=== PATIENT | female | born 1970 | race Caucasian/White ===

== ENCOUNTER 2018-07-30 17:55 | Emergency (ER) | payer BC ==
[2018-07-30 18:05] VITALS: BP 146/89
[2018-07-30] MEDS ORDERED: Albuterol 0.083% 2.5 MG/3 ML Neb Soln NEB ONE (19:00)
--- NOTE | 2018-07-30 19:06 | EDM.PDOC ---
ED HPI GENERAL MEDICAL PROBLEM - General Chief Complaint: Respiratory Problem Stated Complaint: SOB Time Seen by Provider: 07/30/18 18:30 Source of Information: Reports: Patient History Limitations: Reports: No Limitations - History of Present Illness INITIAL COMMENTS - FREE TEXT/NARRATIVE: Patient is a 47-year-old female who presents ED complaining of shortness of breath with exertion and difficulty getting air in. She also has some discomfort to the right upper sternal border worse with palpation. She states symptoms have been going on for the past 3 weeks. She was diagnosed with a sinus infection and received albuterol treatment at that time. She took doxycycline and completed the course. Over the past weekend she's felt that she cannot catch her breath. She's been taking a rescue inhaler with some relief. Today while watching football she felt like she couldn't get all her air in. There's been no documented fever. Sinus congestion and postnasal drip are minimal. She has no cough. She's been eating and drinking okay. There is no increase in weight, swelling to her lower extremities, pain to lower extremities , sore throat, fever, or any additional complaint. Chest Pain Score (Numeric/FACES): 4 - Related Data Allergies Allergy/AdvReac Type Severity Reaction Status Date / Time clindamycin Allergy Hives Verified 07/30/18 18:00 Penicillins Allergy Hives Verified 07/30/18 18:00 Sulfa (Sulfonamide Allergy Hives Verified 07/30/18 18:00 Antibiotics) Home Meds: Home Meds Fluticasone Propionate [Flonase] 2 spray IN DAILY 10/02/15 [History] Zolpidem Tartrate [Ambien] 2.5 mg PO BEDTIME 10/02/15 [History] buPROPion [Wellbutrin XL] 300 mg PO DAILY 10/02/15 [History] Albuterol [Proventil HFA] 1 puff INH QID PRN 07/30/18 [History] FLUoxetine [PROzac] 40 mg PO DAILY 07/30/18 [History] guaiFENesin [Mucinex] 1,200 mg PO ONCALL PRN 07/30/18 [History] Past Medical History - Past Health History Medical/Surgical History: Denies Medical/Surgical History Respiratory History: Reports: Asthma, Sleep Apnea Musculoskeletal History: Reports: Fracture, Other (See Below) Other Musculoskeletal History: herniated disc Psychiatric History: Reports: Depression Hematologic History: Reports: Anemia - Past Surgical History HEENT Surgical History: Reports: Tonsillectomy, Other (See Below) Other HEENT Surgeries/Procedures: Sinus cyst removed Social & Family History - Tobacco Use Smoking Status *Q: Never Smoker - Alcohol Use Days Per Week of Alcohol Use: 3 Number of Drinks Per Day: 2 Total Drinks Per Week: 6 - Recreational Drug Use Recreational Drug Use: No ED ROS GENERAL - Review of Systems Review Of Systems: See Below Constitutional: Denies: Fever, Chills, Malaise, Weakness, Decreased Appetite HEENT: Reports: No Symptoms Respiratory: Reports: Shortness of Breath, Pleuritic Chest Pain (right upper sternal border. ). Denies: Wheezing, Cough, Sputum Cardiovascular: Reports: Dyspnea on Exertion. Denies: Blood Pressure Problem, Lightheadedness, Palpitations, PND, Syncope GI/Abdominal: Reports: No Symptoms Musculoskeletal: Reports: No Symptoms Neurological: Reports: No Symptoms Psychiatric: Reports: No Symptoms ED EXAM, GENERAL - Physical Exam Exam: See Below Exam Limited By: No Limitations General Appearance: Alert, WD/WN, No Apparent Distress Eye Exam: Bilateral Eye: Normal Inspection Ears: Hearing Grossly Normal Nose: Normal Inspection Throat/Mouth: Normal Voice, No Airway Compromise Neck: Normal Inspection, Supple Respiratory/Chest: No Respiratory Distress, Lungs Clear, Normal Breath Sounds, No Accessory Muscle Use Cardiovascular: Normal Peripheral Pulses, Regular Rate, Rhythm, No Murmur GI/Abdominal: Normal Bowel Sounds, Soft, Non-Tender, No Organomegaly, No Distention Back Exam: Normal Inspection. No: CVA Tenderness (L), CVA Tenderness (R) Extremities: Normal Inspection, Non-Tender, No Pedal Edema, Normal Capillary Refill Neurological: Alert, Oriented, CN II-XII Intact, Normal Cognition, No Motor/ Sensory Deficits Psychiatric: Normal Affect, Normal Mood Skin Exam: Warm, Dry, Intact, Normal Color Course - Vital Signs Last Recorded V/S: Last Vital Signs Temp 97.4 F 07/30/18 18:02 Pulse 71 07/30/18 18:02 Resp 18 07/30/18 18:02 BP 146/89 H 07/30/18 18:02 Pulse Ox 100 07/30/18 19:17 - Orders/Labs/Meds Orders: Active Orders 24 hr Category Date Time Status RT Aerosol Therapy [RC] ASDIRECTED Care 07/30/18 19:00 Active CXR [Chest 2V] [CR] Stat Exams 07/30/18 18:59 Taken Meds: Medications Discontinued Medications Generic Name Dose Route Start Last Admin Trade Name Audie PRN Reason Stop Dose Admin Albuterol 2.5 mg 07/30/18 19:00 07/30/18 19:16 Proventil Neb Soln NEB 07/30/18 19:01 2.5 mg ONETIME ONE Administration - Re-Assessments/Exams Free Text/Narrative Re-Assessment/Exam: Ordered chest x-ray two-view and albuterol neb treatment. Will hold off any Labs at This Point. Vital Signs Are Stable. She Is Afebrile. She Does Not Appear in Acute Distress. Patient does have an IUD in place. Pulse criteria for PE low risk group: 1.3% chance of PE and in ED population. X-ray of the chest revealed no acute findings. Reviewed with Dr. Soria. 1805 reassessment, patient states she is feeling much better at the albuterol inhaler. She suspects her symptoms are related to the postnasal drip. We discussed treatment options. She will follow-up with her PCP this week as needed if symptoms do not drastically improved. She was encouraged to return back to the ED if she develops any new or worsening symptoms. Discharge instructions as documented.The patient remained hemodynamically stable while under my care in the E.D. I discussed the concerning symptoms for which to returnto the E.D. with the patient/family. The patient/family verbalized understanding. All questions were answered. Departure - Departure Time of Disposition: 20:18 Disposition: Home, Self-Care 01 Condition: Good Clinical Impression: Post-nasal drip, Mild shortness of breath Rhinitis Qualifiers: Rhinitis type: acute Qualified Code(s): J00 - Acute nasopharyngitis [common cold] - Discharge Information Instructions: Shortness of Breath, Adult, [id number] Referrals: Ronel Soria, [employer] [Primary Care Provider] - Forms: ED Department Discharge Additional Instructions: Start taking flonase 1 spray to each nare twice a day. Claritan 10 mg PO everyday. Nasal saline spray to each nare as needed throughout the course of the day to relieve nasal congestion. May utilize the albuterol as prescribed for cough and wheezing. Followup with PCP this coming week for reevaluation. Return to the E.D. for any new or worsening symptoms. - My Orders Last 24 Hours: My Active Orders 07/30/18 18:59 CXR [Chest 2V] [CR] Stat 07/30/18 19:00 RT Aerosol Therapy [RC] ASDIRECTED - Assessment/Plan Last 24 Hours: My Active Orders 07/30/18 18:59 CXR [Chest 2V] [CR] Stat 07/30/18 19:00 RT Aerosol Therapy [RC] ASDIRECTED
--- NOTE | 2018-07-31 07:13 | CR ---
Chest: Two views of the chest were obtained. Comparison: Prior chest x-ray of 03/28/18. Heart size and mediastinum are normal. Lungs are clear. Diaphragms are flattened on the lateral view. Bony structures shows minimal scoliosis within the spine. Impression: 1. Diaphragms are slightly flattened on the lateral view raising the possibility of emphysematous change. Please correlate if patient is a smoker. 2. Nothing acute is otherwise seen. Diagnostic code #2
== END 2018-07-30 20:33 | disposition home or self-care (01) ==
LOC: JD.ED 17:55
DX: J00 Acute nasopharyngitis [common cold] (principal); R06.02 Shortness of breath; Z88.1 Allergy status to other antibiotic agents; Z88.0 Allergy status to penicillin; Z88.2 Allergy status to sulfonamides; Z79.899 Other long term (current) drug therapy
CPT/HCPCS: 71046; 71046-26; 94640; 99284; 99285-25

== ENCOUNTER 2023-03-24 07:01 | Day surgery (SDC) | payer BC ==
[~2023-03-24 07:01] MED LIST: Lactated Ringers 1,000 ML IV SCH; Lidocaine 1%/Sod Bicarbonate in NS 8.4% 1 ML Syringe IDERM PRN; Midazolam 1 MG/ML 2 ML SDV ONE; Propofol 200 MG/20 ML SDV ONE; Scopolamine 1.5 MG Transdermal Patch TRDERM PRN; Sodium Chloride 0.9% 10 ML Syringe FLUSH PRN; Sodium Chloride 0.9% 10 ML Syringe FLUSH SCH; fentaNYL 100 MCG/2 ML SDV ONE
[2023-03-24] MEDS ORDERED: Ondansetron 4 MG/2 ML SDV ONE (07:40)
[2023-03-24] MEDS ORDERED: Lidocaine 1% 2 ML ONE (07:41)
[2023-03-24] MEDS ORDERED: Ondansetron 4 MG/2 ML SDV IVPUSH PRN (08:34)
[2023-03-24] MEDS ORDERED: Propofol 200 MG/20 ML SDV ONE (09:28)
[2023-03-24] MEDS ORDERED: Lactated Ringers 1,000 ML ONE (09:34)
[2023-03-24 10:30] VITALS: BP 106/66; PULSE 68
== END 2023-03-24 10:31 | disposition home or self-care (01) ==
LOC: JD.SDS 07:01
PROVIDERS: ATTEND Specialist
DX: Z12.11 Encounter for screening for malignant neoplasm of colon (principal); K21.9 Gastro-esophageal reflux disease without esophagitis; K44.9 Diaphragmatic hernia without obstruction or gangrene; J45.909 Unspecified asthma, uncomplicated; F41.9 Anxiety disorder, unspecified; F32.A Depression, unspecified; G47.33 Obstructive sleep apnea (adult) (pediatric); E66.9 Obesity, unspecified; M85.80 Other specified disorders of bone density and structure, unspecified site; Z88.0 Allergy status to penicillin; Z88.2 Allergy status to sulfonamides; Z88.1 Allergy status to other antibiotic agents; Z79.899 Other long term (current) drug therapy; Z88.8 Allergy status to other drugs, medicaments and biological substances
CPT/HCPCS: 43239; 45378; A9270; J2250; J2405; J2704; J3010; J7120; 00813; J3490

== ENCOUNTER 2024-06-21 16:55 | Emergency (ER) | payer BC ==
[2024-06-21] MEDS ORDERED: Sodium Chloride 0.9% 10 ML Syringe FLUSH PRN (17:44)
[2024-06-21 18:11] LABS: HEMATOCRIT 40.9 % (37.0-47.0); HEMOGLOBIN 14.1 gm/dl (12.0-16.0); MEAN CORPUSCULAR HEMOGLOBIN 30.7 pg (28.0-32.0); MEAN CORPUSCULAR HGB CONC 34.5 g/dl (32.0-36.0); MEAN CORPUSCULAR VOLUME 89.1 fl (83.0-99.0); MEAN PLATELET VOLUME 10.3 fl (9.4-12.3); PLATELET COUNT,PLT 323 K/mm3 (150-400); RED BLOOD CELL COUNT 4.59 M/mm3 (4.10-5.30); WHITE BLOOD CELL COUNT,WBC 7.25 K/mm3 (3.9-11.3)
[2024-06-21 18:38] LABS: A/G RATIO 1.4 (1-2); ALANINE AMINOTRANSFERASE,ALT 27 U/L (14-59); ALBUMIN 4.4 g/dl (3.4-5.0); ALKALINE PHOSPHATASE 64 U/L (46-116); ANION GAP 15.3 (5-15); ASPARTATE AMNIOTRANSFERASE,AST 21 U/L (15-37); BILIRUBIN TOTAL 0.9 mg/dL (0.2-1.0); BLOOD UREA NITROGEN,BUN 17 mg/dL (7-18); BUN/CREATININE RATIO 14.2 (14-18); CALCIUM 9.6 mg/dL (8.5-10.1); CARBON DIOXIDE,CO2 25 mEq/L (21-32); CHLORIDE,CL 104 mEq/L (98-107); CREATININE 1.2 mg/dL (0.55-1.02); EST CRCL DRUG DOSING (CG) 44.37 mL/min; ESTIMATED GFR 54 mL/min (>60); GLUCOSE RANDOM 72 mg/dL (70-99); POTASSIUM,K 3.3 mEq/L (3.5-5.1); PROTEIN TOTAL,TP 7.5 g/dl (6.4-8.2); SODIUM,NA 141 mEq/L (136-145)
[2024-06-21 18:39] LABS: TROPONIN I HIGH SENSITIVITY < 4 pg/mL (<=51)
[2024-06-21 19:00] LABS: BAND PERCENT MAN 0 % (0-10); BASOPHILS PERCENT MAN 1 (0.1-1.2); EOSINOPHILS PERCENT MAN 0 % (0.7-5.8); LYMPHOCYTES PERCENT MAN 30 % (20-40); MONOCYTES PERCENT MAN 6 % (2-10); PLATELET COUNT ESTIMATE ADEQUATE
[2024-06-21 19:01] LABS: LYMPHOCYTES % ATYPICAL MANUAL 1 %
[2024-06-21 20:13] VITALS: BP 100/76; PULSE 74
== END 2024-06-21 20:13 | disposition home or self-care (01) ==
LOC: JD.ED 16:55
DX: R07.89 Other chest pain (principal); K21.9 Gastro-esophageal reflux disease without esophagitis; J45.909 Unspecified asthma, uncomplicated; Z79.899 Other long term (current) drug therapy; Z88.0 Allergy status to penicillin; Z88.2 Allergy status to sulfonamides; Z88.8 Allergy status to other drugs, medicaments and biological substances
CPT/HCPCS: 36415; 71045; 71045-26; 80053; 84484; 85007; 85027; 85379; 93005; 93010; 99284; 99285